=== PATIENT | male | born 1980 | race Hispanic/Latino ===

== ENCOUNTER 2017-07-27 17:59 | Emergency (ER) | payer SELFPAY ==
[2017-07-27] MEDS ORDERED: Lidocaine 1% w/Epinephrine 1:100K 20 ML VIAL ONE (18:09)
--- NOTE | 2017-07-27 19:50 | RAD ---
FOUR VIEWS RIGHT KNEE: Date: 07-27-17 History: Right knee pain after sliding down a ladder six feet off the ground. Laceration to right kne e. FINDINGS: There is subcutaneous soft tissue swelling seen at the anterolateral aspect of the knee with subcutan eous emphysema also seen anteriorly, likely related to laceration and subcutaneous soft tissue swelli ng from recent injury. There is no evidence of a fracture or dislocation. No joint space narrowing is seen. No radiopaque foreign body is identified. IMPRESSION: Findings consistent with laceration with subcutaneous edema involving the right knee, but no radiopaq ue foreign body or acute fracture is visualized. POS: [facility]
[2017-07-27] MEDS ORDERED: Bacitracin Zinc 1 Packet ONE (20:32)
[2017-07-27] MEDS ORDERED: HYDROcodone/Acetaminophen 5/325 mg Tablet ONE (20:52)
== END 2017-07-27 21:05 | disposition home or self-care (01) ==
LOC: ERS 17:59
DX: S81.011A Laceration without foreign body, right knee, initial encounter (principal); W11.XXXA Fall on and from ladder, initial encounter
CPT/HCPCS: 12002; J2001